=== PATIENT | female | born 1965 | race Caucasian/White ===

== ENCOUNTER 2018-03-31 07:22 | Day surgery (SDC) | payer BC ==
[~2018-03-31] VITALS: Ht 167.6 cm; Wt 56.7 kg
--- NOTE | 2018-03-31 09:13 | NUR ---
03/31/18 0913 Susanne Shay 0907- PT ARRIVES TO PACU EASILY AROUSABLE TO VOICE. PT REPORTS NO NAUSEA OR PAIN. PT IS ABLE TO STAY AWAKE WELL ON HER OWN. RESP EVEN AND UNLABORED. OXYGEN SAT HIGH 90'S TO 100% ON RA. 0911- PT FALLING ASLEEP INTERMITTENTLY. PT IS ABLE TO WAKE HERSELF.
--- NOTE | 2018-03-31 14:23 | NUR ---
PT SITTING UP IN BED-ALERT AND ORIENTED. SHE SEEMED PREPARED, REQUESTED PRAYER FOR TODAY, AND FUTURE GUIDANCE. WILL FOLLOW NEEDED
--- NOTE | 2018-03-31 18:51 | OR ---
[facility] [address], [place] [address] Signed DATE OF OPERATION: 03/31/2018 SURGEON: Pan Malcolm MD PREOPERATIVE DIAGNOSES: 1. Cervical dysphagia. 2. Forty pack-year smoking history. POSTOPERATIVE DIAGNOSES: 1. 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 2. Hiatal hernia without stricture or Mc's epithelium. 3. Mild duodenitis. PROCEDURES: Esophagogastroduodenoscopy with biopsy. ANESTHESIA: Intravenous sedation, fentanyl 100 mcg, Versed 5 mg. 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 She is a patient of Dr. Fam in [place], [place]. She has had increasing complaints of cervical dysphagia without hemoptysis or hematemesis. She does have a 40-pack year smoking history. She was previously self treated with sodium bicarb and possibly Prilosec for reflux like symptoms a number of years ago, but has been taking no medications currently. She denies any distal dysphagia, only proximal cervical dysphagia. She is admitted to undergo upper endoscopy to characterize problem, understand the risks of bleeding, infection, perforation, and so on. FINDINGS: The vocal cords were reasonably well visualized and showed no sign of nodule. The arytenoid processes were somewhat asymmetric for reasons that are unclear. There was no sign of mass otherwise. The proximal, middle and distal esophagus appeared normal without sign of Mc's epithelium, stricture, or neoplasm. Hiatal hernia was noted and there was duodenitis. CLOtest was negative 15 minutes post procedure. DESCRIPTION OF PROCEDURE: The patient was brought to the endoscopy suite and placed in lateral decubitus position given intravenous sedation to the point of slurred speech and nystagmus. She had already undergone Hurricaine topical hypopharyngeal spray. After satisfactory sedation, Electronically Signed By: PAN MALCOLM MD 03/31/18 1851 PATIENT NAME: MEGHAN DAMON OPERATIVE REPORT DATE OF : 61 REPORT #: [id number] PHYSICIAN: PAN MALCOLM MD PCP: ARNAUD FAM DO REPORT IS CONFIDENTIAL AND NOT TO BE RELEASED WITHOUT AUTHORIZATION [facility] [address], [place] [address] Signed a bite block was placed and an Olympus video upper endoscope passed in the hypopharynx. Careful inspection of the hypopharynx was undertaken showing no sign of neoplasm proper. The arytenoid processes were somewhat asymmetric. Vocal cords ultimately were visualized to a small degree and showed no sign of obvious neoplasm. The scope was advanced to the esophagus without problem throughout its length that appeared grossly normal including the distal portion, though there was no sign of typical Z-line. There was no Mc's epithelium or neoplasm or stricture. The scope was advanced to the stomach, which was insufflated with air. Rugal folds were normal. The antrum was mildly inflamed. Pylorus was normal. Scope was passed through into the duodenum. The 2nd and 3rd portions were normal, but the bulbar portion had duodenitis. There was no sign of ulcer. The biopsies were obtained of the 2nd and 3rd portion and bulb. The scope was withdrawn to the stomach where antral biopsies were obtained. Retroflexed view undertaken showing a moderate-sized hiatal hernia. There was mild proximal gastritis as well. There was no sign of gastric varices. The scope was straightened, withdrawn, and distal esophageal mucosa showed no sign of Mc's epithelium or stricture or neoplasm. Biopsies were taken of the distal esophagus. Further withdrawal of scope to the middle portion showed normal appearance. Biopsies were obtained there and also in the most proximal esophagus just below the area of the cricopharyngeus. The scope was withdrawn again and reinspection of the vocal cord area undertaken again showing no sign of obvious neoplasm. The scope was removed and the patient was taken to recovery in good condition. CONCLUDING DIAGNOSES: 1. Hiatal hernia may well be contributing to cervical dysphagia from spasm. There is no stricture. We will prescribe Prilosec 20 mg daily. 2. Asymmetric arytenoid processes, whether this is a truly pathologic abnormality or not is uncertain. We will review it further and see her response to Prilosec therapy. She has been previously advised again to discontinue smoking. MD ALLAN Zhu/PATRICEL /[id number] cc: Arnaud Fam DO Electronically Signed By: PAN MALCOLM MD 03/31/18 1851 PATIENT NAME: MEGHAN DAMON OPERATIVE REPORT DATE OF : 61 REPORT #: [id number] PHYSICIAN: PAN MALCOLM MD PCP: ARNAUD FAM DO REPORT IS CONFIDENTIAL AND NOT TO BE RELEASED WITHOUT AUTHORIZATION [address] [address] Signed Copies: ARNAUD FAM DO ~ Electronically Signed By: PAN MALCOLM MD 03/31/18 1851 PATIENT NAME: MEGHAN DAMON William OPERATIVE REPORT DATE OF : 61 REPORT #: [id number] PHYSICIAN: PAN MALCOLM MD PCP: ARNAUD FAM DO REPORT IS CONFIDENTIAL AND NOT TO BE RELEASED WITHOUT AUTHORIZATION
== END 2018-03-31 09:36 | disposition home or self-care (01) ==
LOC: OPS 07:22 → DS 07:22 → OPS 08:30 → DS 08:30 → OPS 09:36
PROVIDERS: Surgery
PROC: 0DB78ZX Excision of Stomach, Pylorus, Via Natural or Artificial Opening Endoscopic, Diagnostic (ICD-10-PCS; 2018-03-31)
PROC: 0DB68ZX Excision of Stomach, Via Natural or Artificial Opening Endoscopic, Diagnostic (ICD-10-PCS; 2018-03-31)
PROC: 0DB18ZX Excision of Upper Esophagus, Via Natural or Artificial Opening Endoscopic, Diagnostic (ICD-10-PCS; 2018-03-31)
PROC: 0DB28ZX Excision of Middle Esophagus, Via Natural or Artificial Opening Endoscopic, Diagnostic (ICD-10-PCS; 2018-03-31)
PROC: 0DB98ZX Excision of Duodenum, Via Natural or Artificial Opening Endoscopic, Diagnostic (ICD-10-PCS; principal; 2018-03-31 08:30)
DX: K29.50 Unspecified chronic gastritis without bleeding (principal); K21.0 Gastro-esophageal reflux disease with esophagitis; K44.9 Diaphragmatic hernia without obstruction or gangrene; F17.210 Nicotine dependence, cigarettes, uncomplicated
CPT/HCPCS: 99153; G0500; J2250; J3010; J7120